=== PATIENT | female | born 1970 | race Caucasian/White ===

== ENCOUNTER → 2020-12-16 10:25 | Outpatient (BNVA) | payer BC, SELFPAY | PROVIDERS: Visit Provider Internal Medicine | DX: M25.50 Pain in unspecified joint (principal); L40.9 Psoriasis, unspecified; Z11.59 Encounter for screening for other viral diseases; Z79.899 Other long term (current) drug therapy; G62.9 Polyneuropathy, unspecified; Z86.16 Personal history of COVID-19; Z87.891 Personal history of nicotine dependence | CPT/HCPCS: 36415; 82306; 82533; 82550; 82607; 82728; 83540; 83735; 84100; 84550; 86140; 86704; 86803; 86812; 87340; 99204 ==

== ENCOUNTER 2021-10-20 14:26 | Outpatient (CLI) | payer BC, SELFPAY ==
--- NOTE | 2021-10-20 14:54 | XR_ITS ---
WS: [id number] XR knee LT 3V* [id number] REASON FOR EXAM: knee pain FINDINGS: Joint spaces of the left knee are intact and well preserved. Mild subchondral sclerosis in the medial and lateral knee joint space. Patellofemoral joint spaces intact and relatively well-preserved. Mild subchondral sclerosis in the p atella. No fracture or focal bone lesion. No soft tissue abnormality. XR/XR knee LT 3V* [id number] IMPRESSION: Mild changes of osteoarthritis.
--- NOTE | 2021-10-20 14:54 | XR_ITS ---
WS: [email or web address] XR hand RT min 3V* [id number] REASON FOR EXAM: M25.50 - Pain in unspecified joint FINDINGS: Mild narrowing of the joint space with mild subchondral sclerosis and small marginal osteophytosis in the carpal metacarpal and metacarpal phalangeal joint of the thumb. The DIP and PIP and MP joints are relatively unremarkable. No focal bone abnormality. No focal soft tissue abnormality. XR/XR hand RT min 3V* [id number] IMPRESSION: Mild osteoarthritis of the right thumb.
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
--- NOTE | 2021-10-20 14:54 | XR_ITS ---
WS: [email or web address] XR knee RT 3V* [id number] REASON FOR EXAM: knee pain FINDINGS: Medial and lateral joint spaces are intact and relatively well-preserved. Mild subchondral sclerosis in the medial and lateral knee joint spaces. Patellofemoral joint space is intact and relatively well-preserved. Mild subchondral sclerosis in the patella. No focal bone abnormality. No focal soft tissue abnormality. XR/XR knee RT 3V* [id number] IMPRESSION: Mild changes of osteoarthritis in the right knee.
[2021-10-20 14:55] LABS: Erythrocyte Sedimentation Rate 1 mm/hr (0-15)
[2021-10-20 14:55] LABS: Add Urine Microscopic? NO; Charge for UA Resulting for Rev
[2021-10-20 15:01] LABS: Basophils % 0.4 %; Eosinophils % 0.2 %; Hematocrit 36.6 % (37.0-47.0); Hemoglobin 12.2 g/dL (11.5-15.3); Lymphocytes # 1.8 10^3/uL (0.8-4.8); Lymphocytes % 16.7 %; Mean Corpuscular HGB Conc 33.3 g/dL (30.0-36.0); Mean Corpuscular Hemoglobin 30.3 pg (28.0-34.0); Monocytes # 0.7 10^3/uL (0.2-0.9); Monocytes % 6.5 %; Neutrophils # 7.87 10^3/uL (1.8-7.7); Neutrophils % 75.2 %; Nucleated Red Blood Cells % 0 %; Platelet Count 330 10^3/cmm (130-400); Red Blood Count 4.02 10^6/uL (4.1-5.3); Red Cell Distribution Width 11.8 % (12.1-15.1); White Blood Count 10.5 10^3/uL (4.0-10.0)
--- NOTE | 2021-10-20 15:06 | XR_ITS ---
WS: [email or web address] XR cervical spine fl/ex [id number] REASON FOR EXAM: R52 - Pain, unspecified FINDINGS: Straightening of the normal lordosis of the cervical spine. No vertebral body abnormality. Mild narrowing of the C5-C6 disc space with small anterior and uncinate osteophytes. No significant listhesis. No significant vertebral body movement with flexion and extension. Cervical spine appears unchanged compared to 12/22/2020. XR/XR cervical spine fl/ex [id number] IMPRESSION: Stable cervical spine with mild degenerative spondylosis.
--- NOTE | 2021-10-20 15:06 | XR_ITS ---
WS: [email or web address] XR shoulder LT min 2V* [id number] REASON FOR EXAM: R52 - Pain, unspecified FINDINGS: No fracture or focal bone lesion. Acromioclavicular joint is unremarkable. There is mild subchondral sclerosis and marginal osteophytosis of the glenoid. Mild to moderate sclerosis in the greater biceps tuberosity of the humerus. XR/XR shoulder LT min 2V* [id number] IMPRESSION: Mild osteoarthritis in the glenohumeral joint. Mild to moderate rotator cuff tendon arthropathy.
--- NOTE | 2021-10-20 15:06 | XR_ITS ---
WS: [email or web address] XR shoulder RT min 2V* [id number] REASON FOR EXAM: R52 - Pain, unspecified FINDINGS: Moderate narrowing of the acromioclavicular joint with subchondral sclerosis and mild osteophytosis. Minimal narrowing of the glenohumeral joint. Mild subchondral sclerosis of the glenoid. Minimal subchondral sclerosis in the greater biceps tuberosity of the humerus. XR/XR shoulder RT min 2V* [id number] IMPRESSION: Moderate osteoarthritis of the right AC joint. Mild osteoarthritis of the glenohumeral joint. Minimal rotator cuff tendon arthropathy.
[2021-10-20 15:25] LABS: Bilirubin Urine Neg (Negative); Blood Urine Neg (Negative); Glucose Urine UA Norm (Normal); Ketones Urine Negative (Negative); Leukocyte Esterase Urine Negative (Negative); Nitrate Urine Negative (Negative); Protein Urine Neg (Negative); Specific Gravity, Urine 1.015 (1.005-1.030); Urine Appearance Clear (CLEAR); Urine Color Yellow (Yellow); Urobilinogen Urine Norm (Negative); pH Urine 5 (5-7)
[2021-10-20 15:29] LABS: Alanine Aminotransferase 19 U/L (0-33); Albumin Level 4.4 g/dL (3.5-5.2); Alkaline Phosphatase 44 IU/L (35-105); Anion Gap 12.9 (5-19); Aspartate Amino Transferase 19 U/L (0-32); Blood Urea Nitrogen 16 mg/dL (6-20); Calcium 9.3 mg/dL (8.5-10.5); Carbon Dioxide 26 mmol/L (22-29); Chloride 100 mmol/L (98-107); Globulin 2.5 g/dL (1.3-4.6); Glucose 100 mg/dL (65-115); Osmolality Calculated 281 mOsm/kg (285-295); Potassium 3.9 mmol/L (3.5-5.1); Sodium 135 mmol/L (136-145); Total Bilirubin 0.2 mg/dL (0.15-1.2); Total Protein 6.9 g/dL (6.6-8.7)
[2021-10-21 01:41] LABS: Complement C3 131 mg/dL (90-180)
== END 2021-10-20 14:27 | disposition home or self-care (01) ==
PROVIDERS: PCP Obstetrics & Gynecology; Visit Provider Internal Medicine
DX: R76.8 Other specified abnormal immunological findings in serum (principal); Z79.899 Other long term (current) drug therapy; M85.80 Other specified disorders of bone density and structure, unspecified site; M47.812 Spondylosis without myelopathy or radiculopathy, cervical region; M19.012 Primary osteoarthritis, left shoulder; M19.011 Primary osteoarthritis, right shoulder; M17.0 Bilateral primary osteoarthritis of knee; M19.042 Primary osteoarthritis, left hand; M19.041 Primary osteoarthritis, right hand
CPT/HCPCS: 36415; 72040; 73030; 73130; 73562; 80053; 81003; 85025; 85651; 86140; 86160

== ENCOUNTER → 2022-06-22 17:03 | Outpatient (BNVA) | payer BC, SELFPAY | PROVIDERS: PCP Obstetrics & Gynecology; Visit Provider Internal Medicine | DX: M19.042 Primary osteoarthritis, left hand (principal); Z79.899 Other long term (current) drug therapy | CPT/HCPCS: 73120 ==

== ENCOUNTER → 2023-01-25 16:55 | Outpatient (BNVA) | payer BC, SELFPAY | PROVIDERS: PCP Obstetrics & Gynecology; Visit Provider Internal Medicine | DX: R76.8 Other specified abnormal immunological findings in serum (principal); M25.50 Pain in unspecified joint; E03.9 Hypothyroidism, unspecified; M79.643 Pain in unspecified hand; M18.12 Unilateral primary osteoarthritis of first carpometacarpal joint, left hand | CPT/HCPCS: 36415; 73120; 73600; 80053; 85025; 85651; 86140; 86160 ==

== ENCOUNTER 2023-03-08 19:04 | Emergency (ER) | payer OTHER, BC, SELFPAY ==
--- NOTE | 2023-03-08 19:03 | PC.NURSE ---
pt c/o neck pain but is currently refusing c-collar
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
[2023-03-08 19:13] VITALS: BP 138/74; PULSE 77; RESP 18; TEMP 36.6; O2SAT 97; BMI 28.3
[2023-03-08 19:56] LABS: Add Urine Microscopic? YES; Bilirubin Urine Neg (Negative); Blood Urine Neg (Negative); Glucose Urine UA Norm (Normal); Ketones Urine Negative (Negative); Leukocyte Esterase Urine Trace (Negative); Nitrate Urine Negative (Negative); Protein Urine Neg (Negative); Urine Appearance SL Hazy (CLEAR); Urine Color Yellow (Yellow); Urobilinogen Urine Norm (Negative); pH Urine 6 (5-7)
[2023-03-08 20:06] LABS: Add Urine Culture? No; Bacteria Urine TRACE /hpf; Mucus Urine TRACE /hpf; RBC Urine 0-4 /hpf (0-2); Squamous Epithelial Cell Urine 0-4 /hpf (0-5); Transitional Epi Cells Urine 0-4 /hpf
[2023-03-08 20:55] VITALS: BP 123/61; PULSE 71; O2SAT 97
== END 2023-03-08 20:58 | disposition home or self-care (01) ==
PROVIDERS: Emergency Provider Nurse Practitioner Family; PCP Obstetrics & Gynecology
DX: S16.1XXA Strain of muscle, fascia and tendon at neck level, initial encounter (principal); S39.012A Strain of muscle, fascia and tendon of lower back, initial encounter; S09.90XA Unspecified injury of head, initial encounter; V89.2XXA Person injured in unspecified motor-vehicle accident, traffic, initial encounter
CPT/HCPCS: 70450; 72125; 72131; 81001; 99284

== ENCOUNTER 2023-04-28 14:13 | Outpatient (CLI) | payer OTHER, SELFPAY ==
--- NOTE | 2023-04-28 14:30 | MR_ITS ---
WS: [id number] MRI CERVICAL SPINE NONCONTRAST TECHNIQUE: Sagittal T1, T2 and STIR imaging. Axial T2, gradient, and fiesta imaging. CLINICAL INFORMATION: M54.2 - Cervicalgia COMPARISON: CT cervical 03/08/2023 FINDINGS: Straightening of the normal cervical lordosis. Cord signal is normal. Small disc protrusions worse at C3-C4 C5-C6. C2-C3: Normal. C3-C4: Mild facet arthropathy. Spinal canal and foramen are patent. C4-C5: Minimal disc bulging. Mild facet arthropathy. Spinal canal and foramen are patent. C5-C6: Shallow disc osteophyte protrusion with slight contact of the cervical cord. Spinal canal cherelle ins patent. Moderate RIGHT and mild LEFT bony foraminal narrowing. Moderate facet arthropathy with un covertebral joint hypertrophy. C6-C7: Normal. C7-T1: Normal. Visualized brain stem structures: Normal. Prevertebral soft tissues: Normal. IMPRESSION: 1. Straightening of the normal cervical lordosis. 2. No high-grade central canal stenosis. Cord signal is normal. 3. Shallow disc osteophyte protrusion C5-C6 with slight contact of the cervical cord. Moderate RIGHT and mild LEFT bony foraminal narrowing at this level with moderate facet arthropathy. 4. Tiny shallow protrusions at C3-C4 and C4-C5. 5. No evidence of cord contusion or ligamentous injury.
== END 2023-04-28 14:14 | disposition home or self-care (01) ==
LOC: RAD 14:14
PROVIDERS: PCP Obstetrics & Gynecology; Visit Provider Specialist
DX: M50.21 Other cervical disc displacement, high cervical region (principal); F07.81 Postconcussional syndrome; M25.78 Osteophyte, vertebrae; M48.02 Spinal stenosis, cervical region; M47.812 Spondylosis without myelopathy or radiculopathy, cervical region
CPT/HCPCS: 72141